=== PATIENT | female | born 1995 | race Native Hawaiian/Other Pacific Islander ===

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

== ENCOUNTER 2017-11-12 19:52 | Emergency (ER) | payer BC, OTHER ==
--- NOTE | 2017-11-12 20:40 | ERPHSYRPT ---
- History of Present Illness Time Seen by Provider: 11/12/17 20:34 Source: patient Exam Limitations: no limitations Patient Subjective Stated Complaint: Arrives to ER crying, leading to hyperventilating, leading to laying on the ground acting as if she is passed out , leading to this RN telling pt to stand up and get into bed which she followed commands without difficulty stating "i'm sorry" and continues to cry. Pt then states took 10 pills of Lexapro prior to arrival approx 1800 today in an attempt to kill herself. Pt has scars on bilateral forearms from previous self harm but denies previous suicide attempts. States she is doing this because of her boyfriend but she is unable to tell me why. Triage Nursing Assessment: see above Physician History: The patient is a 22-year-old female complaining of attempting suicide by taking approximately 10 pills of Lexapro 20 mg prior to arrival in the ER. She states she is overwhelmed with everything and life and wants to end it. This feeling has been slowly worsening over the past several weeks. Currently she does not complain of nausea, vomiting, or diarrhea. She denies shortness of breath. She did drink a small amount of vodka prior to arrival. She denies illicit drug use. Many years ago she did cut her left forearm with a knife as a gesture of suicide. Today she denies taking anything but the Lexapro. Timing/Duration: today, hour(s) (2), gradual onset, worse Severity of Symptoms-Max: moderate Severity of Symptoms-Current: moderate Context related to: other (everything in life) Suicidal thoughts: ingestion Associated Symptoms: depressed Previous symptoms: same symptoms as today, no recent treatment Allergies/Adverse Reactions: No Known Drug Allergies Allergy (Verified 11/12/17 20:18) Home Medications: Escitalopram Oxalate [Lexapro] 20 mg PO 11/12/17 [History] Norgestimate-Ethinyl Estradiol [Trinessa Lo Tablet] 1 tab PO DAILY 11/12/17 [ History] Hx Tetanus, Diphtheria Vaccination/Date Given: Yes Hx Influenza Vaccination/Date Given: No Hx Pneumococcal Vaccination/Date Given: No - Past Medical History Pertinent Past Medical History: Yes Other Medical History: SVT - Past Surgical History Past Surgical History: Yes Other Surgical History: RT ARM FX - Social History Smoking Status: Current some day smoker Exposure to second hand smoke: Yes Alcohol Use: Socially Drug Use: none Patient Lives Alone: No Significant Family History: no pertinent family hx - Female History Hx Now: No - Review of Systems Constitutional: No Fever, No Chills Eyes: No Symptoms Ears, Nose, & Throat: No Symptoms Respiratory: No Cough, No Dyspnea Cardiac: No Chest Pain, No Edema, No Syncope Abdominal/Gastrointestinal: No Abdominal Pain, No Nausea, No Vomiting, No Diarrhea Genitourinary Symptoms: No Dysuria Musculoskeletal: No Back Pain, No Neck Pain Skin: No Rash Neurological: No Dizziness, No Focal Weakness, No Sensory Changes Psychological: Depression, Suicidal Ideations, Emotional Lability Endocrine: No Symptoms Hematologic/Lymphatic: No Symptoms Immunological/Allergic: No Symptoms All Other Systems: Reviewed and Negative - Nursing Vital Signs Nursing Vital Signs: Initial Vital Signs Temperature 98.2 F 11/12/17 20:08 Pulse Rate 115 H 11/12/17 20:08 Respiratory Rate 18 11/12/17 20:08 Blood Pressure 142/88 11/12/17 20:08 O2 Sat by Pulse Oximetry 100 11/12/17 20:08 Pain Scale Pain Intensity 0 - Physical Exam General Appearance: no apparent distress Eyes, Ears, Nose, Throat Exam: normal ENT inspection, moist mucous membranes Neck Exam: normal inspection, non-tender, supple Respiratory Exam: normal breath sounds, lungs clear, No respiratory distress Cardiovascular Exam: regular rate/rhythm, No edema Gastrointestinal/Abdominal Exam: soft, No tenderness, No distention Extremities Exam: normal inspection, normal range of motion, No evidence of injury, No edema Current Suicidality: has suicide plan Neurological Exam: alert, public address system mechanic II-XII nml as tested, oriented x 3, depressed affect Appearance: appropriate appearance, appropriate insight, no memory impairment Behavior/Eye Contact/Speech: alert & cooperative, cooperative, good eye contact , normal speech Thoughts/Hallucinations: normal thought pattern Skin Exam: normal color, warm, dry, No rash SpO2 Interpretation: normal SpO2: 100 Oxygen Delivery: Room Air - Course EKG Interpreted by Me: RATE, Sinus Rhythm, Left Newcomb Deviation, NORMAL INTERVALS , NORMAL QRS, NORMAL ST-T Ordered Tests: Active Orders 24 hr Category Date Time Status EKG-ER Only STAT Care 11/12/17 20:45 Active IV Insertion STAT Care 11/12/17 20:45 Active Psychiatric Evaluation STAT Care 11/12/17 20:45 Active ACETAMINOPHEN Stat Lab 11/12/17 21:00 Completed CBC W DIFF Stat Lab 11/12/17 21:00 Completed CMP Stat Lab 11/12/17 21:00 Completed CULTURE,URINE Stat Lab 11/12/17 22:34 Received ETHYL ALCOHOL Stat Lab 11/12/17 21:00 Completed HCG QUALITATIVE,SERUM Stat Lab 11/12/17 21:00 Completed SALICYLATE Stat Lab 11/12/17 21:00 Completed UA W/ MICROSCOPIC Stat Lab 11/12/17 22:34 Completed Urine Triage Profile Stat Lab 11/12/17 22:30 Completed Medication Summary Discontinued Medications Generic Name Dose Route Start Last Admin Trade Name Wes PRN Reason Stop Dose Admin Sodium Chloride 1,000 mls @ 999 mls/hr 11/12/17 20:45 11/12/17 22:30 Sodium Chloride 0.9% 1000 Ml IV 11/12/17 21:45 Infused .Q1H1M STA Infusion Sodium Chloride Confirm 11/12/17 20:57 Sodium Chloride 0.9% 1000 Ml Administered 11/12/17 20:58 Dose 1,000 mls @ ud .ROUTE .K-MED ONE Lab/Rad Data: Laboratory Result Diagrams 11/12/17 21:00 11/12/17 21:00 Laboratory Results 11/12/17 11/12/17 11/12/17 Range/Units 22:34 22:30 21:00 WBC (4.0-10.5) K/mm3 RBC (4.1-5.4) M/mm3 Hgb (12.0-16.0) gm/dl Hct (35-47) % MCV (78-100) fl MCH (26-32) pg MCHC (32-36) g/dl RDW (11.5-14.0) % Plt Count (150-450) K/mm3 MPV (6-9.5) fl Gran % (36.0-66.0) % Eos # (Auto) (0-0.5) Absolute Lymphs (auto) (1.0-4.6) Absolute Monos (auto) (0.0-1.3) Lymphocytes % (24.0-44.0) % Monocytes % (0.0-12.0) % Eosinophils % (0.00-5.0) % Basophils % (0.0-0.4) % Absolute Granulocytes (1.4-6.9) Basophils # (0-0.4) Sodium (137-145) mmol/L Potassium (3.5-5.1) mmol/L Chloride (98-107) mmol/L Carbon Dioxide (22-30) mmol/L Anion Gap (5-15) MEQ/L BUN (7-17) mg/dL Creatinine (0.52-1.04) mg/dL Estimated GFR ML/MIN Glucose (74-106) mg/dL Calcium (8.4-10.2) mg/dL Total Bilirubin (0.2-1.3) mg/dL AST (14-36) U/L ALT (0-35) U/L Alkaline Phosphatase (38-126) U/L Serum Total Protein (6.3-8.2) g/dL Albumin (3.5-5.0) g/dL Serum , Qual NEGATIVE (Negative) Ur Collection Type CLEAN CATCH Urine Color RED (YELLOW) Urine Appearance SLIGHTLY CLOUDY (CLEAR) Urine pH 6.0 (5-6) Ur Specific [place] 1.015 (1.005-1.025) Urine Protein 30 (Negative) Urine Ketones NEGATIVE (NEGATIVE) Urine Blood 250 (0-5) Jarred/ul Urine Nitrite NEGATIVE (NEGATIVE) Urine Bilirubin NEGATIVE (NEGATIVE) Urine Urobilinogen NORMAL (0-1) mg/dL Ur Leukocyte Esterase TRACE (NEGATIVE) Urine Microscopic RBC 50-100 (0-2) /HPF Urine Microscopic WBC 2-5 (0-5) /HPF Ur Epithelial Cells FEW (FEW) /HPF Urine Bacteria FEW (NEGATIVE) /HPF Urine Culture Reflexed YES (NO) Urine Glucose NEGATIVE (NEGATIVE) mg/dL Salicylates (2-20) mg/dL Urine Opiates Level NEGATIVE (NEGATIVE) Ur Methadone NEGATIVE (NEGATIVE) Acetaminophen (10-30) ug/ml Urine Barbiturates NEGATIVE (NEGATIVE) Ur Phencyclidine (PCP) NEGATIVE (NEGATIVE) Urine Amphetamine NEGATIVE (NEGATIVE) U Benzodiazepine Level POSITIVE (NEGATIVE) Urine Cocaine NEGATIVE (NEGATIVE) Urine Marijuana (THC) NEGATIVE (NEGATIVE) Ethyl Alcohol (0-10) mg/dL Specimen Received 11/12/17 2230 11/12/17 11/12/17 Range/Units 21:00 21:00 WBC 13.3 H (4.0-10.5) K/mm3 RBC 4.09 L (4.1-5.4) M/mm3 Hgb 10.1 L (12.0-16.0) gm/dl Hct 32.3 L (35-47) % MCV 79.0 (78-100) fl MCH 24.6 L (26-32) pg MCHC 31.3 L (32-36) g/dl RDW 15.3 H (11.5-14.0) % Plt Count 630 H (150-450) K/mm3 MPV 9.6 H (6-9.5) fl Gran % 69.2 H (36.0-66.0) % Eos # (Auto) 0.19 (0-0.5) Absolute Lymphs (auto) 3.26 (1.0-4.6) Absolute Monos (auto) 0.58 (0.0-1.3) Lymphocytes % 24.5 (24.0-44.0) % Monocytes % 4.4 (0.0-12.0) % Eosinophils % 1.4 (0.00-5.0) % Basophils % 0.5 (0.0-0.4) % Absolute Granulocytes 9.21 H (1.4-6.9) Basophils # 0.06 (0-0.4) Sodium 146 H (137-145) mmol/L Potassium 3.5 (3.5-5.1) mmol/L Chloride 109 H (98-107) mmol/L Carbon Dioxide 21 L (22-30) mmol/L Anion Gap 20.1 H (5-15) MEQ/L BUN 12 (7-17) mg/dL Creatinine 0.82 (0.52-1.04) mg/dL Estimated GFR > 60.0 ML/MIN Glucose 92 (74-106) mg/dL Calcium 9.1 (8.4-10.2) mg/dL Total Bilirubin 0.20 (0.2-1.3) mg/dL AST 29 (14-36) U/L ALT 26 (0-35) U/L Alkaline Phosphatase 126 (38-126) U/L Serum Total Protein 7.9 (6.3-8.2) g/dL Albumin 4.6 (3.5-5.0) g/dL Serum , Qual (Negative) Ur Collection Type Urine Color (YELLOW) Urine Appearance (CLEAR) Urine pH (5-6) Ur Specific [place] (1.005-1.025) Urine Protein (Negative) Urine Ketones (NEGATIVE) Urine Blood (0-5) Jarred/ul Urine Nitrite (NEGATIVE) Urine Bilirubin (NEGATIVE) Urine Urobilinogen (0-1) mg/dL Ur Leukocyte Esterase (NEGATIVE) Urine Microscopic RBC (0-2) /HPF Urine Microscopic WBC (0-5) /HPF Ur Epithelial Cells (FEW) /HPF Urine Bacteria (NEGATIVE) /HPF Urine Culture Reflexed (NO) Urine Glucose (NEGATIVE) mg/dL Salicylates < 1.0 L (2-20) mg/dL Urine Opiates Level (NEGATIVE) Ur Methadone (NEGATIVE) Acetaminophen < 10 L (10-30) ug/ml Urine Barbiturates (NEGATIVE) Ur Phencyclidine (PCP) (NEGATIVE) Urine Amphetamine (NEGATIVE) U Benzodiazepine Level (NEGATIVE) Urine Cocaine (NEGATIVE) Urine Marijuana (THC) (NEGATIVE) Ethyl Alcohol 138 H (0-10) mg/dL Specimen Received - Progress Progress: improved Progress Note: 11/13/17 04:50 [facility] does tele-psych eval. by Dr Maria Del Carmen Hinkle who recommends that pt can return home. 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 The [facility] evaluation recommends you return home and then followup with the [facility] in 1 to 2 days.
[2017-11-12] MEDS ORDERED: Sodium Chloride 0.9% 1000 ML 1,000 ML IV STA (20:45)
[2017-11-12] MEDS ORDERED: Sodium Chloride 0.9% 1000 ML 1,000 ML ONE (20:57)
[2017-11-12 21:11] LABS: BASOPHIL % 0.5 % (0.0-0.4); Basophil (Absolute #) 0.06 (0-0.4); Eosinophil % 1.4 % (0.00-5.0); Eosinophil (Absolute #) 0.19 (0-0.5); Granulocyte Absolute (ANC) 9.21 (1.4-6.9); Granulocytes % 69.2 % (36.0-66.0); Hematocrit 32.3 % (35-47); Hemoglobin 10.1 gm/dl (12.0-16.0); Lymphocyte (Absolute #) 3.26 (1.0-4.6); Lymphocytes % 24.5 % (24.0-44.0); Mean Corpuscular Hgb Concent. 31.3 g/dl (32-36); Mean Platelet Volume 9.6 fl (6-9.5); Monocyte (Absolute #) 0.58 (0.0-1.3); Monocytes % 4.4 % (0.0-12.0); Platelet Count 630 K/mm3 (150-450); Red Blood Count 4.09 M/mm3 (4.1-5.4); Red Cell Distribution Width 15.3 % (11.5-14.0); White Blood Count 13.3 K/mm3 (4.0-10.5)
[2017-11-12 21:15] LABS: Mean Corpuscular Hemoglobin 24.6 pg (26-32)
[2017-11-12 21:49] LABS: ALBUMIN 4.6 g/dL (3.5-5.0); ALKALINE PHOSPHATASE 126 U/L (38-126); ANION GAP 20.1 MEQ/L (5-15); BLOOD UREA NITROGEN 12 mg/dL (7-17); CHLORIDE 109 mmol/L (98-107); Calcium 9.1 mg/dL (8.4-10.2); Carbon Dioxide 21 mmol/L (22-30); Creatinine 1 0.82 mg/dL (0.52-1.04); ETHYL ALCOHOL 138 mg/dL (0-10); Glucose 92 mg/dL (74-106); Potassium 3.5 mmol/L (3.5-5.1); SGOT/AST 29 U/L (14-36); SGPT/ALT 26 U/L (0-35); SODIUM 146 mmol/L (137-145); Total Protein 7.9 g/dL (6.3-8.2)
[2017-11-12 21:50] LABS: ACETAMINOPHEN < 10 ug/ml (10-30); SALICYLATE < 1.0 mg/dL (2-20)
[2017-11-12 23:01] LABS: Amphetamine,Urine NEGATIVE (NEGATIVE); Barbiturate,Urine NEGATIVE (NEGATIVE); Benzodiazepine,Urine POSITIVE (NEGATIVE); Cocaine,Urine NEGATIVE (NEGATIVE); Methadone,Urine NEGATIVE (NEGATIVE); Opiate,Urine NEGATIVE (NEGATIVE); PCP,Urine NEGATIVE (NEGATIVE); THC,Urine NEGATIVE (NEGATIVE)
[2017-11-12 23:01] LABS: Appearance SLIGHTLY CLOUDY (CLEAR); Bilirubin NEGATIVE (NEGATIVE); Blood 250 Ery/ul (0-5); Glucose NEGATIVE (NEGATIVE); Ketones NEGATIVE (NEGATIVE); Leukocyte Esterase TRACE (NEGATIVE); Nitrite NEGATIVE (NEGATIVE); Protein,Urine Dip 30 (Negative); Specific Gravity 1.015 (1.005-1.025); Urobilinogen NORMAL mg/dL (0-1)
[2017-11-12 23:02] LABS: Bacteria FEW /HPF (NEGATIVE); Epithelial Cells FEW /HPF (FEW); RBC 50-100 /HPF (0-2)
[2017-11-13 00:01] VITALS: BP 114/72; PULSE 84
[2017-11-13 04:55] VITALS: O2SAT 100
== END 2017-11-13 05:15 | disposition home or self-care (01) ==
LOC: ED 19:52
DX: F32.9 Major depressive disorder, single episode, unspecified (principal); T43.222A Poisoning by selective serotonin reuptake inhibitors, intentional self-harm, initial encounter
CPT/HCPCS: 36000; 36415; 80053; 80307; 81000; 84703; 85025; 87086; 90791; 93005; 96360; 99285; G0481; 96374; Q3014; G0480

== ENCOUNTER 2017-11-19 13:44 | Emergency (ER) | payer OTHER ==
[2017-11-19] MEDS ORDERED: PERCOCET TABLET 5/325MG (14:17)
[2017-11-19] MEDS ORDERED: DELTASONE 20 MG (14:18)
[2017-11-19] MEDS ORDERED: Valium 5 MG (14:19)
[2017-11-19] MEDS: PERCOCET TABLET 5/325MG PO (14:22)
[2017-11-19] MEDS: Valium 5 MG PO (14:22)
[2017-11-19] MEDS: DELTASONE 20 MG PO (14:22)
== END 2017-11-19 14:54 | disposition home or self-care (01) ==
LOC: ED 13:44